=== PATIENT | male | born 1965 | race Caucasian/White ===

== ENCOUNTER 2016-11-11 20:48 | Emergency (ER) | payer OTHER ==
[~2016-11-11 20:48] MED LIST: ACETAMINOPHEN325 MG PO; CIPRO500 MG PO; COMBIVENT RESPIM4 GM IH; DESENEX85 GM TOP; KEFLEX500 MG PO; KLOR-CON-1010 MEQ PO; LOPRESSOR50 MG PO; LORTAB 10-3251 EACH PO; MICATIN14 GM TOP; NEURONTIN300 MG PO; PROTONIX40 MG PO; TOPAMAX50 MG PO; ZYVOX600 MG PO
== END 2016-11-12 01:35 | disposition short-term general hospital (02) ==
LOC: ER 20:48
DX: I89.0 Lymphedema, not elsewhere classified (principal); L03.116 Cellulitis of left lower limb; F17.210 Nicotine dependence, cigarettes, uncomplicated; Z79.899 Other long term (current) drug therapy; Z88.1 Allergy status to other antibiotic agents
CPT/HCPCS: 36415; 96374; 96375